=== PATIENT | female | born 1980 | race Two or more races ===

== ENCOUNTER → 2016-12-10 | Outpatient (REF) | payer OTHER ==
[2016-12-10 12:28] LABS: BASO % 0.5 % (0.0-1.0); EOS # 0.1 K/mm3 (0.0-0.50); EOS % 1.5 % (0.0-3.0); LARGE UNSTAINED CELL # 0.1 K/mm3 (0.0-0.4); LARGE UNSTAINED CELL % 1.2 % (0.0-4.0); LYMPH # 1.9 K/mm3 (1.5-4.5); LYMPH % 32.9 % (24.0-44.0); MEAN CORPUSCULAR HEMOGLOBIN 34.1 pg (27.0-33.0); MEAN CORPUSCULAR HGB CONC 35.7 g/dl (32.0-36.5); MEAN CORPUSCULAR VOLUME 95.5 fl (80.0-96.0); MONO # 0.4 K/mm3 (0.0-0.8); MONO % 6.1 % (0.0-5.0); NEUTROPHILS # 3.4 K/mm3 (1.8-7.7); NEUTROPHILS % 57.7 % (36.0-66.0); PLATELET COUNT, AUTOMATED 233 k/mm3 (150-450); RED CELL DISTRIBUTION WIDTH 11.3 % (11.5-14.5); WHITE BLOOD COUNT 5.9 K/mm3 (4.0-10.0)
[2016-12-10 12:49] LABS: ALBUMIN 3.8 GM/DL (3.2-5.2); ALBUMIN/GLOBULIN RATIO 1.31 (1.00-1.93); ALKALINE PHOSPHATASE 48 U/L (45-117); ALT/SGPT 22 U/L (12-78); AMYLASE 41 U/L (25-115); ANION GAP 7 MEQ/L (8-16); AST/SGOT 14 U/L (15-37); BILIRUBIN,TOTAL 0.7 MG/DL (0.2-1.0); BLOOD UREA NITROGEN 14 MG/DL (7-18); CALCIUM LEVEL 8.2 MG/DL (8.5-10.1); CARBON DIOXIDE LEVEL 28 MEQ/L (21-32); CHLORIDE LEVEL 109 MEQ/L (98-107); CREATININE FOR GFR 0.71 MG/DL (0.55-1.02); GLOMERULAR FILTRATION RATE > 60.0 (>60); GLUCOSE, FASTING 78 MG/DL (70-105); POTASSIUM SERUM 4.5 MEQ/L (3.5-5.1); SODIUM LEVEL 144 MEQ/L (136-145); TOTAL PROTEIN 6.7 GM/DL (6.4-8.2)
== END ==
LOC: M LAB REF 12:19
PROVIDERS: ATTEND Physician Assistant Medical
DX: Z12.4 Encounter for screening for malignant neoplasm of cervix (principal); R10.11 Right upper quadrant pain; R10.31 Right lower quadrant pain

== ENCOUNTER → 2016-12-12 | Outpatient (CLI) | payer OTHER ==
[~2016-12-12] MED LIST: GASTROGRAFIN SOLUTION 30ML (Q9963) As Ordered ONE; ISOVUE-370 76% 100ML VIAL (Q9967) As Ordered ONE
--- NOTE | 2016-12-13 04:26 | REP ---
Clinical: Cervical carcinoma. Comparison: 12/30/2014. Technique: Axial contrast enhanced images from the lung bases to the pubic symphysis using oral and 100 ml Isovue 370 intravenous contrast material with precontrast and delayed images of the abdomen as well as coronal and sagittal re-formations. Findings: Lung bases are clear. Visualized heart and pericardium normal. Liver, spleen, pancreas, gallbladder, bilateral adrenal glands and kidneys are relatively normal. Simple, benign 1 cm right renal cyst is unchanged. The enteric system is without obstruction or acute inflammatory process. Pelvis demonstrates normal bladder and relatively normal appearing uterus/adnexa no obvious pelvic, retroperitoneal, or intraperitoneal adenopathy. No pelvic fluid or ascites. No free air. Abdominal aorta and vasculature appears normal. Surrounding musculoskeletal structures are intact without focal osseous abnormality. Incidental note is made of chronic L5 spondylolysis without spondylolisthesis. Impression: No acute abdominopelvic pathology appreciated. Specifically, no evidence for adenopathy, metastatic disease, ascites or mass lesion. Signed by José Antonio Torrez MD 12/13/2016 04:18 A
== END ==
LOC: M RAD 11:27
PROVIDERS: ATTEND Physician Assistant Medical
DX: R10.31 Right lower quadrant pain (principal)
CPT/HCPCS: 74178; Q9963; Q9967

== ENCOUNTER → 2016-12-20 | Outpatient (CLI) | payer OTHER ==
[~2016-12-20] MED LIST changes: +E-Z-GAS II EFFERVESCENT PACKET (SODIUM BICARB./CITRIC ACID/SIMETHICONE) As Ordered ONE; +E-Z-HD 98% w/w 340GM SUSP BTL As Ordered ONE; +E-Z-PAQUE 96% w/w SUSP 176GM BTL As Ordered ONE; -GASTROGRAFIN SOLUTION 30ML (Q9963) As Ordered ONE; -ISOVUE-370 76% 100ML VIAL (Q9967) As Ordered ONE
--- NOTE | 2016-12-20 15:05 | REP ---
UPPER GI WITH SMALL BOWEL FOLLOW THROUGH: The procedure was performed by Rochelle BOOKER under the direct supervision of Dr Johnson. All imaging was reviewed with Dr Johnson Prior to dictation. The corporate job titles film showed no organomegaly or pathological masses. The patient was able to ingest liquid barium and air in a quantity sufficient to produce a double contrast examination. The oral and pharyngeal stages of deglutition appeared unremarkable. Esophageal transport was prompt and efficient. There was no evidence of esophagitis, stricture or mucosal ring. Gastroesophageal reflux was not observed on this examination. A small sliding hiatal hernia is present. The duodenal anglin were normally outlined. There was no duodenitis, peptic ulcer disease or neoplasm. The visualized portion of the proximal small bowel was normal in course and caliber. Additional liquid barium was given at the end of the examination in order to perform a small bowel follow through. During fluoroscopy gentle palpation of the small bowel loops showed them to be freely movable and pliable without evidence of a fixed or angulated loop. The small bowel mucosal pattern was normal in course and caliber. There was no transition to suggest a partial small bowel obstruction. Spot filming of the terminal ileum showed it to be within normal limits. IMPRESSION: Small hiatal hernia, otherwise unremarkable double contrast upper GI examination and small bowel follow through. Fluoroscopy time of 3 minutes and 10 seconds. Reviewed by ADE Guerin 12/22/2016 10:09 AEdited and Signed by Gorge Johnson MD 12/22/2016 05:19 P
== END ==
LOC: M RAD 11:22
PROVIDERS: ATTEND Physician Assistant Medical
DX: R10.9 Unspecified abdominal pain (principal)

== ENCOUNTER → 2017-07-05 | Outpatient (CLI) | payer OTHER ==
[2017-07-05 16:50] LABS: ANION GAP 6 MEQ/L (8-16); BLOOD UREA NITROGEN 13 MG/DL (7-18); CALCIUM LEVEL 8.9 MG/DL (8.5-10.1); CARBON DIOXIDE LEVEL 27 MEQ/L (21-32); CHLORIDE LEVEL 107 MEQ/L (98-107); CREATININE FOR GFR 0.75 MG/DL (0.55-1.30); GLOMERULAR FILTRATION RATE > 60.0 (>60); GLUCOSE, FASTING 87 MG/DL (70-100); SODIUM LEVEL 140 MEQ/L (136-145)
== END ==
LOC: M WUC 12:07
DX: N83.209 Unspecified ovarian cyst, unspecified side (principal)
CPT/HCPCS: 80048

== ENCOUNTER → 2017-07-28 | Outpatient (CLI) | payer OTHER | LOC: M WUC 09:12 | DX: S62.635A Displaced fracture of distal phalanx of left ring finger, initial encounter for closed fracture (principal); X58.XXXA Exposure to other specified factors, initial encounter; Y92.89 Other specified places as the place of occurrence of the external cause | CPT/HCPCS: 73140 ==

== ENCOUNTER → 2018-02-19 | Outpatient (REF) | payer OTHER ==
[2018-02-19 17:34] LABS: BASO % 0.4 % (0.0-1.0); HEMATOCRIT 41.7 % (36.0-47.0); IMMATURE GRANULOCYTE % 0.1 % (0-3.0); LYMPH % 28.6 % (24.0-44.0); MEAN CORPUSCULAR HEMOGLOBIN 31.7 pg (27.0-33.0); MEAN CORPUSCULAR HGB CONC 33.6 g/dl (32.0-36.5); MEAN CORPUSCULAR VOLUME 94.3 fl (80.0-96.0); MONO # 0.5 10^3/uL (0.0-0.8); MONO % 6.9 % (0.0-5.0); NEUTROPHILS # 4.4 10^3/uL (1.8-7.7); PLATELET COUNT, AUTOMATED 228 10^3/uL (150-450); RED BLOOD COUNT 4.42 10^6/uL (4.00-5.40); RED CELL DISTRIBUTION WIDTH 11.4 % (11.5-14.5); WHITE BLOOD COUNT 6.8 10^3/uL (4.0-10.0)
[2018-02-19 18:09] LABS: ALBUMIN 3.8 GM/DL (3.2-5.2); ALBUMIN/GLOBULIN RATIO 1.23 (1.00-1.93); ALKALINE PHOSPHATASE 46 U/L (45-117); ALT/SGPT 22 U/L (12-78); AMYLASE 42 U/L (25-115); ANION GAP 9 MEQ/L (8-16); AST/SGOT 17 U/L (7-37); BILIRUBIN,TOTAL 0.6 MG/DL (0.2-1.0); BLOOD UREA NITROGEN 10 MG/DL (7-18); CALCIUM LEVEL 8.5 MG/DL (8.5-10.1); CARBON DIOXIDE LEVEL 27 MEQ/L (21-32); CHLORIDE LEVEL 105 MEQ/L (98-107); CREATININE FOR GFR 0.76 MG/DL (0.55-1.30); FREE T4 1.11 NG/DL (0.76-1.46); GLOMERULAR FILTRATION RATE > 60.0 (>60); GLUCOSE, FASTING 79 MG/DL (70-100); LIPASE 80 U/L (73-393); POTASSIUM SERUM 4.1 MEQ/L (3.5-5.1); SODIUM LEVEL 141 MEQ/L (136-145); TOTAL PROTEIN 6.9 GM/DL (6.4-8.2)
[2018-02-19 18:32] LABS: INR 0.96; PROTHROMBIN TIME 12.9 SECONDS (12.1-14.4)
[2018-02-19 18:33] LABS: PARTIAL THROMBOPLASTIN TIME 27.5 SECONDS (25.4-37.6)
== END ==
LOC: M SFHCPLAZ 15:37
DX: R10.9 Unspecified abdominal pain (principal)
CPT/HCPCS: 82150

== ENCOUNTER → 2018-08-07 | Outpatient (REF) | payer OTHER ==
[2018-08-10 14:11] LABS: HPV HYBRID CAPTURE II Negative (Negative)
== END ==
LOC: M LAB REF 18:19
PROVIDERS: ATTEND Obstetrics & Gynecology
DX: Z12.4 Encounter for screening for malignant neoplasm of cervix (principal)
CPT/HCPCS: 87624; G0123

== ENCOUNTER → 2019-01-22 | Outpatient (CLI) | payer OTHER ==
[2019-01-22 09:55] LABS: THYROID STIMULATING HORMONE 2.21 uIU/ML (0.358-3.740)
[2019-01-22 11:27] LABS: ESTRADIOL 1146.8 PG/ML; PROGESTERONE 32.3 NG/ML
== END ==
LOC: M WUC 08:09
PROVIDERS: ATTEND Obstetrics & Gynecology Reproductive Endocrinology
DX: E28.9 Ovarian dysfunction, unspecified (principal)

== ENCOUNTER → 2019-01-28 | Outpatient (CLI) | payer OTHER ==
[2019-01-28 10:31] LABS: PROGESTERONE 36.61 NG/ML
== END ==
LOC: M WUC 08:16
PROVIDERS: ATTEND Obstetrics & Gynecology Reproductive Endocrinology
DX: E28.9 Ovarian dysfunction, unspecified (principal)

== ENCOUNTER → 2019-01-30 | Outpatient (CLI) | payer OTHER ==
[2019-01-30 11:19] LABS: ESTRADIOL 443.2 PG/ML; PROGESTERONE 32.54 NG/ML; THYROID STIMULATING HORMONE 2.07 uIU/ML (0.358-3.740)
== END ==
LOC: M WUC 08:04
PROVIDERS: ATTEND Obstetrics & Gynecology Reproductive Endocrinology
DX: Z32.01 Encounter for pregnancy test, result positive (principal)

== ENCOUNTER → 2019-07-31 | Outpatient (REF) | payer OTHER ==
[2019-07-31 10:13] LABS: BASO % 0.4 % (0.0-1.0); HEMATOCRIT 42.6 % (36.0-47.0); HEMOGLOBIN 14.5 g/dl (12.0-15.5); LYMPH # 1.9 10^3/uL (1.5-5.0); LYMPH % 27.2 % (24.0-44.0); MEAN CORPUSCULAR HEMOGLOBIN 32.6 pg (27.0-33.0); MEAN CORPUSCULAR VOLUME 95.7 fl (80.0-96.0); MONO # 0.6 10^3/uL (0.0-0.8); MONO % 7.9 % (0.0-5.0); NEUTROPHILS # 4.5 10^3/uL (1.5-8.5); NEUTROPHILS % 64.4 % (36.0-66.0); PLATELET COUNT, AUTOMATED 224 10^3/uL (150-450); RED BLOOD COUNT 4.45 10^6/uL (4.00-5.40); WHITE BLOOD COUNT 7.1 10^3/uL (4.0-10.0)
[2019-07-31 10:24] LABS: INR 0.99; PROTHROMBIN TIME 12.8 SECONDS (11.8-14.0)
[2019-07-31 10:25] LABS: PARTIAL THROMBOPLASTIN TIME 25.5 SECONDS (25.0-38.4)
[2019-07-31 10:27] LABS: ALBUMIN 3.5 GM/DL (3.2-5.2); ALT/SGPT 30 U/L (12-78); BILIRUBIN,TOTAL 0.9 MG/DL (0.2-1.0); BLOOD UREA NITROGEN 16 MG/DL (7-18); CALCIUM LEVEL 8.5 MG/DL (8.5-10.1); CARBON DIOXIDE LEVEL 27 MEQ/L (21-32); CHLORIDE LEVEL 109 MEQ/L (98-107); CHOLESTEROL LEVEL 178 MG/DL (<200); CHOLESTEROL RISK RATIO 2.579 (<5); FREE T4 1.08 NG/DL (0.76-1.46); GLOMERULAR FILTRATION RATE > 60.0 (>60); GLUCOSE, FASTING 91 MG/DL (70-100); HDL CHOLESTEROL 69 MG/DL (>40); LDL CHOLESTEROL 91 MG/DL (<100); NON-HDL-C 109 MG/DL; POTASSIUM SERUM 4.4 MEQ/L (3.5-5.1); SODIUM LEVEL 141 MEQ/L (136-145); THYROID STIMULATING HORMONE 0.765 uIU/ML (0.358-3.740); TOTAL PROTEIN 6.5 GM/DL (6.4-8.2); TRIGLYCERIDES LEVEL 90 MG/DL (<150)
[2019-07-31 10:43] LABS: HEMOGLOBIN A1c 5.1 %
== END ==
LOC: M SFHCPLAZ 08:11
PROVIDERS: ATTEND Physician Assistant Medical
DX: R10.9 Unspecified abdominal pain (principal); K21.9 Gastro-esophageal reflux disease without esophagitis; Z13.220 Encounter for screening for lipoid disorders; E66.9 Obesity, unspecified

== ENCOUNTER → 2019-08-16 | Outpatient (CLI) | payer OTHER ==
[2019-08-16 15:59] LABS: ESTRADIOL 74.4 PG/ML; PROGESTERONE 45.1 NG/ML
== END ==
LOC: M PLALAB 13:59
PROVIDERS: ATTEND Obstetrics & Gynecology Reproductive Endocrinology
DX: E28.9 Ovarian dysfunction, unspecified (principal)

== ENCOUNTER → 2019-08-23 | Outpatient (CLI) | payer OTHER ==
[2019-08-23 09:44] LABS: HCG, SERUM QUANTITATIVE < 1.0 MIU/ML
[2019-08-23 09:55] LABS: PROGESTERONE 6.84 NG/ML
== END ==
LOC: M PLALAB 08:24
PROVIDERS: ATTEND Obstetrics & Gynecology Reproductive Endocrinology
DX: Z32.00 Encounter for pregnancy test, result unknown (principal)

== ENCOUNTER → 2019-12-27 | Outpatient (CLI) | payer OTHER ==
[2019-12-27 11:00] LABS: ESTRADIOL 142.1 PG/ML; PROGESTERONE 25.14 NG/ML
== END ==
LOC: M WUC 08:04
PROVIDERS: ATTEND Obstetrics & Gynecology Reproductive Endocrinology
DX: E28.9 Ovarian dysfunction, unspecified (principal)

== ENCOUNTER → 2020-01-03 | Outpatient (CLI) | payer OTHER ==
[2020-01-03 10:15] LABS: HCG, SERUM QUANTITATIVE < 1.0 MIU/ML
[2020-01-03 10:23] LABS: PROGESTERONE 9.01 NG/ML
== END ==
LOC: M WUC 08:02
PROVIDERS: ATTEND Obstetrics & Gynecology Reproductive Endocrinology
DX: Z32.00 Encounter for pregnancy test, result unknown (principal)

== ENCOUNTER → 2020-04-02 | Outpatient (CLI) | payer OTHER ==
[2020-04-02 17:17] LABS: BASO % 0.3 % (0.0-1.0); HEMATOCRIT 40.2 % (36.0-47.0); HEMOGLOBIN 12.9 g/dl (12.0-15.5); LYMPH # 1.7 10^3/uL (1.5-5.0); LYMPH % 18.6 % (24.0-44.0); MEAN CORPUSCULAR HEMOGLOBIN 31.2 pg (27.0-33.0); MEAN CORPUSCULAR HGB CONC 32.1 g/dl (32.0-36.5); MEAN CORPUSCULAR VOLUME 97.3 fl (80.0-96.0); MONO # 0.6 10^3/uL (0.0-0.8); MONO % 6.1 % (0.0-5.0); NEUTROPHILS # 6.9 10^3/uL (1.5-8.5); NEUTROPHILS % 74.7 % (36.0-66.0); PLATELET COUNT, AUTOMATED 237 10^3/uL (150-450); RED BLOOD COUNT 4.13 10^6/uL (4.00-5.40); WHITE BLOOD COUNT 9.2 10^3/uL (4.0-10.0)
[2020-04-02 17:45] LABS: HEMOGLOBIN A1c 4.9 %
[2020-04-02 17:54] LABS: ALBUMIN 3.6 GM/DL (3.2-5.2); ALT/SGPT 22 U/L (12-78); BILIRUBIN,TOTAL 0.4 MG/DL (0.2-1.0); BLOOD UREA NITROGEN 17 MG/DL (7-18); CARBON DIOXIDE LEVEL 29 MEQ/L (21-32); CHLORIDE LEVEL 107 MEQ/L (98-107); CREATININE FOR GFR 0.82 MG/DL (0.55-1.30); ESTRADIOL 23.9 PG/ML; FOLLICLE STIMULATING HORMONE 6.3 mIU/mL; GLOMERULAR FILTRATION RATE > 60.0 (>60); GLUCOSE, FASTING 97 MG/DL (70-100); HCG, SERUM QUANTITATIVE < 1.0 MIU/ML; LUTEINIZING HORMONE 4.4 mIU/mL; POTASSIUM SERUM 4.3 MEQ/L (3.5-5.1); PROGESTERONE 0.74 NG/ML; PROLACTIN 9.3 NG/ML; SODIUM LEVEL 139 MEQ/L (136-145); TESTOSTERONE 29 NG/DL (14-76); TOTAL 25(OH) VITAMIN D 31.6 NG/ML (30.0-100.0); TOTAL PROTEIN 6.5 GM/DL (6.4-8.2)
[2020-04-02 17:59] LABS: HEPATITIS B SURFACE ANTIGEN NEGATIVE (NEGATIVE)
[2020-04-02 18:26] LABS: HEPATITIS C VIRUS ABY INDEX < 0.0 INDEX (<0.8)
[2020-04-02 18:28] LABS: HIV 1&2 SCREEN CENTAUR NEGATIVE (NEGATIVE)
== END ==
LOC: M WUC 14:55
PROVIDERS: ATTEND Obstetrics & Gynecology Reproductive Endocrinology
DX: E28.9 Ovarian dysfunction, unspecified (principal)

== ENCOUNTER → 2020-05-21 | Outpatient (CLI) | payer OTHER ==
[2020-05-21 11:02] LABS: ESTRADIOL 391.2 PG/ML; PROGESTERONE 38.85 NG/ML
== END ==
LOC: M WUC 08:02
PROVIDERS: ATTEND Obstetrics & Gynecology Reproductive Endocrinology
DX: E28.9 Ovarian dysfunction, unspecified (principal)

== ENCOUNTER → 2020-05-27 | Outpatient (CLI) | payer OTHER ==
[2020-05-27 11:08] LABS: PROGESTERONE 94.49 NG/ML
== END ==
LOC: M WUC 08:02
PROVIDERS: ATTEND Obstetrics & Gynecology Reproductive Endocrinology
DX: Z32.00 Encounter for pregnancy test, result unknown (principal)

== ENCOUNTER → 2020-05-29 | Outpatient (CLI) | payer OTHER ==
[2020-05-29 14:15] LABS: THYROID STIMULATING HORMONE 1.17 uIU/ML (0.358-3.740)
[2020-05-29 19:09] LABS: ESTRADIOL 1957.2 PG/ML
[2020-05-29 19:31] LABS: PROGESTERONE 139.08 NG/ML
== END ==
LOC: M WUC 09:46
PROVIDERS: ATTEND Obstetrics & Gynecology Reproductive Endocrinology
DX: Z32.01 Encounter for pregnancy test, result positive (principal)

== ENCOUNTER → 2020-07-16 | Outpatient (REF) | payer OTHER ==
[~2020-07-16] MED LIST changes: -E-Z-GAS II EFFERVESCENT PACKET (SODIUM BICARB./CITRIC ACID/SIMETHICONE) As Ordered ONE; -E-Z-HD 98% w/w 340GM SUSP BTL As Ordered ONE; -E-Z-PAQUE 96% w/w SUSP 176GM BTL As Ordered ONE; +GNP28TAB2 PO
[2020-07-16 11:08] LABS: HEMATOCRIT 39.6 % (36.0-47.0); HEMOGLOBIN 13.5 g/dl (12.0-15.5); MEAN CORPUSCULAR HEMOGLOBIN 31.6 pg (27.0-33.0); MEAN CORPUSCULAR HGB CONC 34.1 g/dl (32.0-36.5); MEAN CORPUSCULAR VOLUME 92.7 fl (80.0-96.0); PLATELET COUNT, AUTOMATED 216 10^3/uL (150-450); RED BLOOD COUNT 4.27 10^6/uL (4.00-5.40); WHITE BLOOD COUNT 9.3 10^3/uL (4.0-10.0)
[2020-07-16 12:00] LABS: GLUCOSE CHALLENGE TEST 1 HOUR 75 MG/DL (LESS THAN 140)
[2020-07-16 12:29] LABS: HEMOGLOBIN A1c 4.6 %
[2020-07-16 13:47] LABS: HEPATITIS C VIRUS ABY INDEX < 0.0 INDEX (<0.8)
[2020-07-16 13:48] LABS: HIV 1&2 SCREEN CENTAUR NEGATIVE (NEGATIVE)
== END ==
LOC: M PLALAB 08:13
PROVIDERS: ATTEND Obstetrics & Gynecology
DX: O09.529 Supervision of elderly multigravida, unspecified trimester (principal); Z3A.00 Weeks of gestation of pregnancy not specified

== ENCOUNTER 2020-07-17 21:12 | Emergency (ER) | payer OTHER ==
[~2020-07-17] VITALS: Ht 160 cm; Wt 100.2 kg
[2020-07-17 21:12] VITALS: BP 150/66
[2020-07-17] MEDS ORDERED: GNP28TAB2 PO (21:35)
--- NOTE | 2020-07-17 23:09 | REPVR ---
PROCEDURE INFORMATION: Exam: US First Trimester, Transabdominal Exam date and time: 07/17/2020 10:41 PM Age: 39 years old Clinical indication: Lmp or gestational age (in weeks): 04/29/2020; Other: Vaginal spotting; ; Additional info: Vaginal bleeding TECHNIQUE: Imaging protocol: Real-time transabdominal obstetrical ultrasound of the maternal pelvis and a first trimester , less than 14 weeks 0 days, with image documentation. COMPARISON: No relevant prior studies available. FINDINGS: Gestation: Single intrauterine fetus. Embryonic/ heart rate: heartbeat of 163 bpm. Placenta: Small subchorionic hemorrhage measuring 18 x 8 x 13 mm. Amniotic fluid: Amniotic fluid is normal for gestational age. BIOMETRY: Trego-Rump length: Trego-rump length is 5.3 cm suggesting an age of 12 weeks 0 days. The EDC is 01/29/2021. MATERNAL: Uterus: Question of small right lateral fibroid measuring 15 x 11 x 17 mm. Cervix: Unremarkable. Intraperitoneal space: No intraperitoneal free fluid. IMPRESSION: 1. Single live intrauterine fetus with an estimated age of 12 weeks 0 days. The EDC is 01/29/2021. 2. Small subchorionic hemorrhage measuring 18 x 8 x 13 mm. 3. Question of small right lateral fibroid measuring 15 x 11 x 17 mm Electronically signed by: Adrien Jackson On 07/17/2020 23:08:57 PM
== END 2020-07-17 23:44 | disposition home or self-care (01) ==
LOC: M ED 21:12
DX: O20.8 Other hemorrhage in early pregnancy (principal); O09.521 Supervision of elderly multigravida, first trimester; Z3A.12 12 weeks gestation of pregnancy; Z87.59 Personal history of other complications of pregnancy, childbirth and the puerperium

== ENCOUNTER → 2020-09-16 | Outpatient (CLI) | payer OTHER ==
--- NOTE | 2020-09-16 08:06 | REP ---
INDICATION: ANATOMY COMPARISON: 07/17/2020 TECHNIQUE: Transabdominal obstetrical ultrasound with color Doppler evaluation. FINDINGS: Examination demonstrates a single live intrauterine in variable presentation. motion is identified by technologist. Placenta is noted anterior and grade 0 without evidence for placenta previa or abruption. Amniotic fluid volume is normal. Cervix measures 3.3 cm in length and appears closed.. Selected gestational age: 20 weeks 0 days with SHERMAN 02/03/2021. Gestational age by current measurements 20 weeks 2 days with SHERMAN 02/01/2021. FHR equals 160 beats per minute. Estimated weight 337 grams. Anatomical assessment demonstrates normal structures including cranium, choroid plexus, cavum, cerebellum/posterior fossa, facial features, lungs, four-chamber heart/ventricular outflow tracts, diaphragm, stomach, cord insertion/three-vessel cord, kidneys/bladder, spine, and extremities. IMPRESSION: Single live intrauterine in variable presentation. Anatomical assessment is complete and normal. <Electronically signed by José Antonio Torrez > 09/16/20 [id number]
== END ==
LOC: M WHC 06:57
PROVIDERS: ATTEND Obstetrics & Gynecology
DX: O09.522 Supervision of elderly multigravida, second trimester (principal); Z3A.20 20 weeks gestation of pregnancy

== ENCOUNTER → 2020-10-21 | Outpatient (CLI) | payer OTHER ==
[2020-10-21 10:33] LABS: HEMATOCRIT 36.2 % (36.0-47.0); HEMOGLOBIN 12.4 g/dl (12.0-15.5); MEAN CORPUSCULAR HGB CONC 34.3 g/dl (32.0-36.5); MEAN CORPUSCULAR VOLUME 93.3 fl (80.0-96.0); PLATELET COUNT, AUTOMATED 196 10^3/uL (150-450); RED BLOOD COUNT 3.88 10^6/uL (4.00-5.40); WHITE BLOOD COUNT 10.5 10^3/uL (4.0-10.0)
[2020-10-21 12:26] LABS: GC DNA AMPLIFICATION NEGATIVE (NEGATIVE)
== END ==
LOC: M PLALAB 08:08
PROVIDERS: ATTEND Obstetrics & Gynecology
DX: O09.521 Supervision of elderly multigravida, first trimester (principal)

== ENCOUNTER → 2020-11-24 | Outpatient (CLI) | payer OTHER ==
--- NOTE | 2020-11-24 08:42 | REP ---
INDICATION: GROWTH. COMPARISON: Comparison study September 16, 2020. TECHNIQUE: Transabdominal obstetric sonography. FINDINGS: Scanning through the gravid uterus demonstrates a viable single intrauterine gestation in cephalic lie. motion is observed and heart rate is recorded at 144 beats per minute. A anterior placenta is seen, grade 1, without evidence of placenta previa. Closed cervical length is not seen due to low head position. No extrauterine abnormality is observed. Amniotic fluid is subjectively normal. anatomic survey is previously completed. Biometry chart: BPD 8.3 cm, 33 weeks 4 days Head circumference 29.7 cm, 32 weeks 6 days Abdominal circumference 27.7 cm, 31 weeks 5 days Femur length 5.8 cm, 30 weeks 3 days Humeral length 5.4 cm, 31 weeks 2 days HC AC ratio normal 1.07 Cephalic index normal 0.80 Estimated weight 1798 g, 3 lb 15 oz, 91st percentile for 29 weeks 6 days SD ratio in the umbilical cord artery by Doppler normal 3.82 YAMILET normal 22.7 cm (9.0-23.4 cm) IMPRESSION: Viable single intrauterine gestation at 32 weeks 0 days by today's composite sonographic criteria. SHERMAN by today's sonography January 19, 2021. No complication identified. Expected gestational age estimate based on known SHERMAN of February 03, 2021 is 29 weeks 6 days. Estimated weight 91st percentile. <Electronically signed by Dimitris Johnson > 11/24/20 [id number]
== END ==
LOC: M WHC 07:06
PROVIDERS: ATTEND Obstetrics & Gynecology
DX: O09.523 Supervision of elderly multigravida, third trimester (principal); Z3A.29 29 weeks gestation of pregnancy

== ENCOUNTER → 2021-01-06 | Outpatient (CLI) | payer OTHER ==
--- NOTE | 2021-01-06 09:04 | REP ---
INDICATION: GROWTH COMPARISON: 11/24/2020 TECHNIQUE: Transabdominal obstetrical ultrasound with color Doppler evaluation. FINDINGS: Examination demonstrates a single live intrauterine in cephalic presentation. motion is identified by technologist. Placenta is noted anterior and grade 2 without evidence for placenta previa or abruption. Amniotic fluid volume is normal. Cervix appears closed.. Selected gestational age: 36 weeks 0 days with SHERMAN 02/03/2021. Gestational age by current measurements 37 weeks 0 days with SHERMAN 01/27/2021. FHR equals 150 beats per minute. BPD: 9.3 cm at 30 weeks 0 days HC: 32.7 cm at 37 weeks 0 days AC: 33.1 cm at 37 weeks 0 days FL: 7.0 cm at 35 weeks 5 days HL: 6.4 cm at 36 weeks 6 days HC/AC: 0.99 Estimated weight 3044 grams (75thpercentile). YAMILET: 16.3 cm Umbilical artery SD ratio: 3.12 (1.64-3.51) IMPRESSION: Single live advanced gestation in cephalic presentation demonstrating appropriate estimated weight and growth. Amniotic fluid volume is normal. <Electronically signed by José Antonio Torrez > 01/06/21 [id number]
== END ==
LOC: M WHC 08:05
PROVIDERS: ATTEND Advanced Practice Midwife
DX: O09.523 Supervision of elderly multigravida, third trimester (principal); Z3A.36 36 weeks gestation of pregnancy

== ENCOUNTER → 2021-01-06 | Outpatient (REF) | payer OTHER | LOC: M SFHCWAGY 10:20 | PROVIDERS: ATTEND Obstetrics & Gynecology | DX: O09.529 Supervision of elderly multigravida, unspecified trimester (principal) ==

== ENCOUNTER → 2021-01-19 | Outpatient (CLI) | payer OTHER ==
[2021-01-19 16:09] LABS: HEMATOCRIT 36.8 % (36.0-47.0); HEMOGLOBIN 12.4 g/dl (12.0-15.5); MEAN CORPUSCULAR HEMOGLOBIN 30.2 pg (27.0-33.0); MEAN CORPUSCULAR HGB CONC 33.7 g/dl (32.0-36.5); MEAN CORPUSCULAR VOLUME 89.8 fl (80.0-96.0); PLATELET COUNT, AUTOMATED 182 10^3/uL (150-450); WHITE BLOOD COUNT 11.5 10^3/uL (4.0-10.0)
[2021-01-19 16:31] LABS: CREATININE,RANDOM URINE 61.2 MG/DL; TOTAL PROTEIN,RANDOM URINE 14.1 MG/DL (0.0-12.0)
[2021-01-19 16:46] LABS: ALT/SGPT 16 U/L (12-78); BILIRUBIN,TOTAL 0.5 MG/DL (0.2-1.0); CREATININE FOR GFR 0.72 MG/DL (0.55-1.30); GLOMERULAR FILTRATION RATE > 60.0 (>60); LDH LACTATE DEHYDROGENASE 191 U/L (84-246); URIC ACID 3.8 MG/DL (2.6-6.0)
== END ==
LOC: M LAB 15:42
PROVIDERS: ATTEND Obstetrics & Gynecology
DX: O16.9 Unspecified maternal hypertension, unspecified trimester (principal)

== ENCOUNTER → 2021-08-26 | Outpatient (REF) | payer OTHER ==
[~2021-08-26] MED LIST changes: +IBUP80TA PO; +OMEP40CA4 PO; +PERCOCET PO; +TUMS750C22 PO
== END ==
LOC: M PLALAB 13:16
PROVIDERS: ATTEND Obstetrics & Gynecology
DX: Z12.4 Encounter for screening for malignant neoplasm of cervix (principal)
CPT/HCPCS: 87624; G0123

== ENCOUNTER → 2021-10-01 | Outpatient (CLI) | payer OTHER | LOC: M WHC 08:53 | PROVIDERS: ATTEND Obstetrics & Gynecology | DX: Z12.31 Encounter for screening mammogram for malignant neoplasm of breast (principal); N63.20 Unspecified lump in the left breast, unspecified quadrant ==

== ENCOUNTER → 2021-10-08 | Outpatient (CLI) | payer OTHER | LOC: M WHC 12:18 | PROVIDERS: ATTEND Obstetrics & Gynecology | DX: R92.8 Other abnormal and inconclusive findings on diagnostic imaging of breast (principal); N63.20 Unspecified lump in the left breast, unspecified quadrant ==

== ENCOUNTER → 2021-11-25 | Outpatient (CLI) | payer OTHER | LOC: M RAD 07:51 | PROVIDERS: ATTEND Internal Medicine | DX: R10.11 Right upper quadrant pain (principal) ==

== ENCOUNTER → 2021-12-08 | Outpatient (REF) | payer OTHER | LOC: M LAB REF 12:03 | PROVIDERS: ATTEND Physician Assistant Medical | DX: J06.9 Acute upper respiratory infection, unspecified (principal) ==

== ENCOUNTER → 2022-02-16 | Outpatient (REF) | payer OTHER | LOC: M LAB REF 21:47 | PROVIDERS: ATTEND Physician Assistant | DX: B34.9 Viral infection, unspecified (principal) ==

== ENCOUNTER → 2022-04-05 | Outpatient (CLI) | payer OTHER | LOC: M WHC 15:19 | PROVIDERS: ATTEND Obstetrics & Gynecology | DX: N63.20 Unspecified lump in the left breast, unspecified quadrant (principal) ==

== ENCOUNTER → 2022-05-18 | Outpatient (CLI) | payer OTHER | LOC: M LABSMTC 10:13 | PROVIDERS: ATTEND Anesthesiology | DX: Z01.812 Encounter for preprocedural laboratory examination (principal) ==

== ENCOUNTER 2022-05-23 13:35 | Day surgery (SDC) | payer OTHER ==
[~2022-05-23] VITALS: Ht 160 cm; Wt 102.5 kg
[~2022-05-23 13:35] MED LIST changes: +NS 1,000 ML IV ONE
[2022-05-23] MEDS ORDERED: LIDOCAINE 2% 100MG/5ML SDV (FOR ANES.) As Ordered ONE (13:41)
[2022-05-23] MEDS ORDERED: propofoL 200 MG/20 ML VIAL As Ordered ONE ×2 (13:41→14:47)
[2022-05-23] MEDS ORDERED: fentaNYL 100 MCG/2 ML INJECTION As Ordered ONE (14:48)
[2022-05-23 15:47] VITALS: BP 165/81
== END 2022-05-23 15:57 | disposition home or self-care (01) ==
LOC: M OPP 13:35
PROVIDERS: ATTEND Internal Medicine Gastroenterology
DX: K44.9 Diaphragmatic hernia without obstruction or gangrene (principal); K31.89 Other diseases of stomach and duodenum; Z79.1 Long term (current) use of non-steroidal anti-inflammatories (NSAID); Z79.899 Other long term (current) drug therapy; F17.200 Nicotine dependence, unspecified, uncomplicated
CPT/HCPCS: 43239; 88305; J3010

== ENCOUNTER → 2022-10-28 | Outpatient (CLI) | payer OTHER ==
[~2022-10-28] MED LIST changes: -NS 1,000 ML IV ONE
== END ==
LOC: M WHC 11:04
PROVIDERS: ATTEND Obstetrics & Gynecology
DX: Z53.9 Procedure and treatment not carried out, unspecified reason (principal)

== ENCOUNTER → 2022-10-28 | Outpatient (REF) | payer OTHER | LOC: M SFHCWAGY 16:51 | PROVIDERS: ATTEND Obstetrics & Gynecology | DX: Z12.4 Encounter for screening for malignant neoplasm of cervix (principal); R87.618 Other abnormal cytological findings on specimens from cervix uteri | CPT/HCPCS: 87624; G0123 ==

== ENCOUNTER → 2022-12-01 | Outpatient (CLI) | payer OTHER | LOC: M WHC 09:38 | PROVIDERS: ATTEND Obstetrics & Gynecology | DX: R92.8 Other abnormal and inconclusive findings on diagnostic imaging of breast (principal) | CPT/HCPCS: 76642; 77066; G0279 ==

== ENCOUNTER 2023-05-14 15:32 | Emergency (ER) | payer OTHER ==
[~2023-05-14] VITALS: Ht 160 cm; Wt 104.5 kg
[2023-05-14 16:45] LABS: BASO % 0.4 % (0.0-1.0); HEMATOCRIT 34.4 % (36.0-47.0); HEMOGLOBIN 11.1 g/dl (12.0-15.5); LYMPH # 1.8 10^3/uL (1.5-5.0); LYMPH % 21.5 % (24.0-44.0); MEAN CORPUSCULAR HEMOGLOBIN 28.2 pg (27.0-33.0); MEAN CORPUSCULAR HGB CONC 32.3 g/dl (32.0-36.5); MEAN CORPUSCULAR VOLUME 87.5 fl (80.0-96.0); MONO # 0.6 10^3/uL (0.0-0.8); MONO % 7.2 % (2.0-8.0); NEUTROPHILS # 5.9 10^3/uL (1.5-8.5); NEUTROPHILS % 70.8 % (36.0-66.0); PLATELET COUNT, AUTOMATED 230 10^3/uL (150-450); RED BLOOD COUNT 3.93 10^6/uL (4.00-5.40); WHITE BLOOD COUNT 8.3 10^3/uL (4.0-10.0)
[2023-05-14 17:07] LABS: LIPASE 28 U/L (12-53)
[2023-05-14 17:10] LABS: ALBUMIN 3.7 G/DL (3.2-5.2); ALKALINE PHOSPHATASE 55 U/L (46-116); ALT/SGPT 24 U/L (7.0-40); AST/SGOT 20 U/L (<34); BILIRUBIN,DIRECT 0.2 MG/DL (<0.4); BILIRUBIN,TOTAL 0.6 MG/DL (0.3-1.2); BLOOD UREA NITROGEN 8 MG/DL (9-23); CALCIUM LEVEL 8.3 MG/DL (8.5-10.1); CARBON DIOXIDE LEVEL 26 MMOL/L (20-31); CHLORIDE LEVEL 107 MMOL/L (98-107); CREATININE FOR GFR 0.65 MG/DL (0.55-1.30); GLOMERULAR FILTRATION RATE > 60.0 (>58); GLUCOSE, FASTING 94 MG/DL (60-100); SODIUM LEVEL 139 MMOL/L (136-145); TOTAL PROTEIN 6.5 G/DL (5.7-8.2)
[2023-05-14 17:20] LABS: RSV AMPLIFICATION NEGATIVE (NEGATIVE)
[2023-05-14 17:35] LABS: HCG, SERUM QUALITATIVE NEGATIVE (NEGATIVE)
[2023-05-14] MEDS: KETOROLAC 30 MG/ML 1ML VIAL IV ONE (19:34)
[2023-05-14 21:16] VITALS: BP 133/83; TEMP 97; O2SAT 99
== END 2023-05-14 21:22 | disposition home or self-care (01) ==
LOC: M ED 15:32
DX: R10.13 Epigastric pain (principal); K21.9 Gastro-esophageal reflux disease without esophagitis; F17.200 Nicotine dependence, unspecified, uncomplicated; Z79.899 Other long term (current) drug therapy
CPT/HCPCS: 76705; 80047; 80048; 80076; 81001; 83690; 84703; 85025; 87631; 99284; J1885

== ENCOUNTER → 2024-01-05 | Outpatient (CLI) | payer OTHER | LOC: M WHC 07:53 | PROVIDERS: ATTEND Obstetrics & Gynecology | DX: Z12.31 Encounter for screening mammogram for malignant neoplasm of breast (principal); R92.333 Mammographic heterogeneous density, bilateral breasts ==

== ENCOUNTER → 2024-01-05 | Outpatient (REF) | payer OTHER ==
[2024-01-10 16:32] LABS: HPV APTIMA Not Detected (Not Detected)
== END ==
LOC: M SFHCWAGY 10:18
PROVIDERS: ATTEND Obstetrics & Gynecology
DX: Z12.4 Encounter for screening for malignant neoplasm of cervix (principal)
CPT/HCPCS: 87624; G0123

== ENCOUNTER → 2024-05-20 | Outpatient (CLI) | payer OTHER | LOC: M RAD 09:46 | PROVIDERS: ATTEND Internal Medicine | DX: E07.9 Disorder of thyroid, unspecified (principal) ==

== ENCOUNTER → 2025-01-07 | Outpatient (REF) | payer OTHER ==
[2025-01-09 14:37] LABS: HPV APTIMA Not Detected (Not Detected)
== END ==
LOC: M SFHCWAGY 13:13
PROVIDERS: ATTEND Obstetrics & Gynecology
DX: Z12.4 Encounter for screening for malignant neoplasm of cervix (principal)
CPT/HCPCS: 87624; G0123

== ENCOUNTER → 2025-01-07 | Outpatient (CLI) | payer OTHER | LOC: M WHC 07:59 | PROVIDERS: ATTEND Obstetrics & Gynecology | DX: Z12.31 Encounter for screening mammogram for malignant neoplasm of breast (principal) ==